=== PATIENT | male | born 2005 | race Caucasian/White ===

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

== ENCOUNTER 2024-08-29 21:07 | Emergency (ER) | payer SELFPAY ==
--- OUTSIDE RECORDS SUMMARY | 2024-08-29 21:09 | XMS REPORT | Continuity of Care Document ---
Author Name Unknown Address [address] [place] [address] [address] thconnect Address [address] [facility] [address] [place] [address] Care Team Providers Care Garden Equipment Mechanic Name Role Phone bianca Attending Clinician Unavailable Payers Payer Name Policy Type Policy Number Effective Date Expirati on Date Source [facility] P [id number] Encounters Start Date/Time End Date/Time Encounter Type Admission Type Attending Clinicians Care Facility Care Department Encounter ID Source 2022-12-06 09:47:04 Outpatient bianca [facility] [id number] [facility]
[2024-08-29] MEDS ORDERED: LIDOCAINE 1% MPF 5 ML VIAL ONE (21:38)
[2024-08-29] MEDS ORDERED: TDAP (DIPHTH,PERTUSS(ACELL),TET VAC) 0.5 ML VIAL IMVAC ONE (21:38)
--- NOTE | 2024-08-29 22:22 | ER ---
Nurse's Notes [facility] Name: Tk Blair Age: 19 yrs Sex: Male : 2005 Arrival Date: 08/29/2024 Time: 21:07 Bed 12 Private MD: Diagnosis: Laceration without foreign body of right hand Presentation: 08/29 21:25 Chief complaint: Patient states: I cut my right hand at work today on a sharp edge. tm6 Coronavirus screen: Client denies travel out of the [place] in the last 14 days. Ebola Screen: Patient negative for fever greater than or equal to 101.5 degrees Fahrenheit, and additional compatible Ebola Virus Disease symptoms Patient denies exposure to infectious person. Patient denies travel to an Ebola-affected area in the 21 days before illness onset. No symptoms or risks identified at this time. Initial Sepsis Screen:. Risk Assessment: Do you want to hurt yourself or someone else? Patient reports no desire to harm self or others. Onset of symptoms was August 29, 2024 at 19:00. 21:25 Method Of Arrival: Ambulatory tm6 21:25 Acuity: KATELYN 4 tm6 22:42 Initial Sepsis Screen: Does the patient meet any 2 criteria? No. Patient's initial lg3 sepsis screen is negative. Does the patient have a suspected source of infection? No. Patient's initial sepsis screen is negative. Triage Assessment: 21:29 General: Appears in no apparent distress. Behavior is calm, cooperative. Pain: tm6 Complains of pain in right hand Pain currently is 4 out of 10 on a pain scale. Quality of pain is described as burning, aching, Pain began 2 hours ago. EENT: No signs and/or symptoms were reported regarding the EENT system. Neuro: Level of Consciousness is awake, alert, obeys commands, Oriented to person, place, time, situation. Cardiovascular: Patient's skin is warm and dry. Respiratory: Airway is patent Respiratory effort is even, unlabored, Respiratory pattern is regular, symmetrical. GI: No signs and/or symptoms were reported involving the gastrointestinal system. Abdomen is flat, non-distended. : No signs and/or symptoms were reported regarding the genitourinary system. Derm: Wound noted right hand Wound is small laceration to right hand. Musculoskeletal: No signs and/or symptoms reported regarding the musculoskeletal system. Injury Description: Laceration sustained to right hand is 0.5 to 2.5 cm long, was sustained 2-4 hours ago. no active bleeding noted at this time. Historical: - Allergies: 21:26 No Known Allergies; tm6 - PMHx: 19: Seizures; ADD/ADHD; tm6 - PSHx: 21:26 Appendectomy; tm6 - Immunization history:: Client reports receiving the 2nd dose of the Covid vaccine. - Infectious Disease History:: Denies. - Social history:: Smoking status: Patient denies any tobacco usage or history of. Patient uses alcohol, but reports only rare drinking. Screenin:39 [facility] ED Fall Risk Assessment (Adult) History of falling in the last 3 months, lg3 including since admission No falls in past 3 months (0 pts) Confusion or Disorientation No (0 pts) Intoxicated or Sedated No (0 pts) Impaired Gait No (0 pts) Mobility Assist Device Used No (0 pt) Altered Elimination No (0 pt) Score/Fall Risk Level 0 - 2 = Low Risk Oriented to surroundings, Maintained a safe environment, Educated pt \T\ family on fall prevention, incl call for assistance when getting out of bed, Assessed \T\ reinforced patient's understanding of fall precautions. Abuse screen: Denies threats or abuse. Denies injuries from another. Nutritional screening: No deficits noted. Tuberculosis screening: No symptoms or risk factors identified. Assessment: 22:39 General: Appears in no apparent distress. comfortable, Behavior is calm, cooperative. lg3 Pain: Denies pain. Neuro: No deficits noted. Johns Agitation-Sedation Scale (RASS): 0 - Alert and Calm Level of Consciousness is awake, alert, obeys commands, Oriented to person, place, time, situation. Cardiovascular: No deficits noted. Denies chest pain, shortness of breath, Capillary refill < 3 seconds Clubbing of nail beds is absent JVD is absent Patient's skin is warm and dry. Respiratory: No deficits noted. Airway is patent Respiratory effort is even, unlabored, Respiratory pattern is regular, symmetrical. GI: No deficits noted. No signs and/or symptoms were reported involving the gastrointestinal system. : No signs and/or symptoms were reported regarding the genitourinary system. EENT: No deficits noted. No signs and/or symptoms were reported regarding the EENT system. Derm: Skin is intact, is healthy with good turgor, Skin is dry, Skin is normal, Skin temperature is warm Wound noted dorsum of right hand. Musculoskeletal: No deficits noted. No signs and/or symptoms reported regarding the musculoskeletal system. Circulation, motion, and sensation intact. Range of motion: intact in all extremities. Vital Signs: 21:27 Pulse 76; Resp 17; Temp 97.6(TE); Pulse Ox 98% on R/A; Weight 77.11 kg; Height 5 ft. 9 tm6 in. ; Pain 3/10; 21:28 BP 137 / 96; MAP 107 mmHg; tm6 22:39 BP 129 / 91; Pulse 71; Resp 18 S; Pulse Ox 99% on R/A; lg3 21:27 Body Mass Index 25.10 (77.11 kg, 175.26 cm) tm6 21:27 Pain Scale: Adult tm6 ED Course: 21:10 Patient arrived in ED. mr 21:11 Klaudia Ray FNP-C [facility]. kb 21:11 Ridge Cee MD is Attending Physician. kb 21:26 Triage completed. tm6 21:29 Arm band placed on left wrist. tm6 22:39 Patient has correct armband on for positive identification. lg3 22:39 Assist provider with laceration repair on right hand that was between 2.6 to 7.5 cm lg3 using sutures. Set up tray. Performed by Klaudia COVARRUBIAS Dressed with band aid, Patient tolerated well. Patient did not have IV access during this emergency room visit. Administered Medications: 21:40 Drug: Boostrix Tdap IM 0.5 ml IM once; as a single dose Route: IM; Site: left deltoid; tm6 22:42 Follow up: Response: (VIS) Vaccine information sheet provided today. Questions and/or lg3 concerns addressed. VIS edition date: May 22, 2021.; No adverse reaction 22:42 Drug: Lidocaine Infiltration (1 %) 1 vials 5 ml Infiltration once; to bedside Volume: 5 lg3 ml; Route: Infiltration; 22:42 Follow up: Response: No adverse reaction lg3 Medication: 22:39 Vaccine Information Statement (VIS) provided today. Questions and/or concerns lg3 addressed. VIS edition date: May 22, 2021. Outcome: 22:21 Discharge ordered by MD. kb 22:39 Discharged to home ambulatory, lg3 22:39 Condition: stable 22:39 Discharge instructions given to patient, Instructed on discharge instructions, follow up and referral plans. wound care, Demonstrated understanding of instructions, follow-up care, wound care, 22:42 Patient left the ED. lg3 Signatures: Klaudia Ray, NOTCHER-C NOTCHER-CkKaci Doan, Reg Reg mr Cynthia Chandler, RN RN lg3 Devika Boudreaux RN RN tm6
--- NOTE | 2024-08-29 22:22 | EDPHYS ---
Physician Documentation [facility] Name: Tk Blair Age: 19 yrs Sex: Male : 2005 Arrival Date: 08/29/2024 Time: 21:07 Bed 12 Private MD: ED Physician Ridge Cee HPI: 08/29 22:19 This 19 yrs old Male presents to ER via Ambulatory with complaints of Hand Injury. kb 22:19 Patient is a 19-year-old male who presents for laceration of right hand that occurred kb at work approximately 3 hours prior to arrival. States there was a sharp area in the kitchen that he accidentally hit with his right hand. Denies any other injuries.. Historical: - Allergies: 21:26 No Known Allergies; tm6 - PMHx: 21:26 Seizures; ADD/ADHD; tm6 - PSHx: 21:26 Appendectomy; tm6 - Immunization history:: Client reports receiving the 2nd dose of the Covid vaccine. - Infectious Disease History:: Denies. - Social history:: Smoking status: Patient denies any tobacco usage or history of. Patient uses alcohol, but reports only rare drinking. ROS: 22:18 Constitutional: As per HPI kb Exam: 22:18 Constitutional: This is a well developed, well nourished patient who is awake, alert, kb and in no acute distress. Head/Face: Normocephalic, atraumatic. ENT: Moist Mucous membranes Cardiovascular: Regular rate Respiratory: Respirations even and unlabored. No increased work of breathing. Talking in full sentences MS/ Extremity: Pulses equal, no cyanosis. Neurovascular intact. Full, normal range of motion. Neuro: Awake and alert, GCS 15, oriented to person, place, time, and situation. 22:18 Skin: injury, laceration(s), the wound is approximately 1.5 cm(s), of the dorsum of right hand, that can be described as clean, no foreign body, linear, without bleeding, Vital Signs: 21:27 Pulse 76; Resp 17; Temp 97.6(TE); Pulse Ox 98% on R/A; Weight 77.11 kg; Height 5 ft. 9 tm6 in. ; Pain 3/10; 21:28 BP 137 / 96; MAP 107 mmHg; tm6 22:39 BP 129 / 91; Pulse 71; Resp 18 S; Pulse Ox 99% on R/A; lg3 21:27 Body Mass Index 25.10 (77.11 kg, 175.26 cm) tm6 21:27 Pain Scale: Adult tm6 Laceration: 22:18 Wound Repair of 1.5cm ( 0.6in ) subcutaneous laceration to dorsum of right hand. Linear kb shaped.. Distal neuro/vascular/tendon intact. Anesthesia: Local anesthetic administered with 1 mls of 1% lidocaine. Wound prep: Extensive cleansing with hibiclenz by me, Wound irrigation with saline by me. Skin closed with 3 5-0 Prolene using simple sutures and sterile technique. Patient tolerated well. MDM: 21:11 Medical Screening Exam initiated kb 22:19 Differential diagnosis: laceration, abrasion. Data reviewed: vital signs, nurses notes. kb Counseling: I had a detailed discussion with the patient and/or guardian regarding the historical points, exam findings, and any diagnostic results supporting the discharge/admit diagnosis, the need for outpatient follow up, a family practitioner, to return to the emergency department if symptoms worsen or persist or if there are any questions or concerns that arise at home. 22:20 Test considered but Not performed: X-ray: Hand x-ray considered but wound is kb superficial, patient has full range of motion of hand. 08/29 21:27 Order name: Dressing - Wound; Complete Time: 22:42 kb 08/29 21:27 Order name: Gloves, Sterile; Complete Time: 21:44 kb 08/29 21:27 Order name: Prolene, Sutures; Complete Time: 21:44 kb 08/29 21: Order name: Setup Suture Tray; Complete Time: 21:44 kb Administered Medications: 21:40 Drug: Boostrix Tdap IM 0.5 ml IM once; as a single dose Route: IM; Site: left deltoid; tm6 22:42 Follow up: Response: (VIS) Vaccine information sheet provided today. Questions and/or lg3 concerns addressed. VIS edition date: May 22, 2021.; No adverse reaction 22:42 Drug: Lidocaine Infiltration (1 %) 1 vials 5 ml Infiltration once; to bedside Volume: 5 lg3 ml; Route: Infiltration; 22:42 Follow up: Response: No adverse reaction lg3 Disposition: 08/30 20:38 Co-signature as Attending Physician, Ridge Cee MD I agree with the assessment sp4 and plan of care. I reviewed the patient's care provided by the Advanced Practice Provider and agree with the diagnosis and treatment plan. Disposition Summary: 08/29/24 22:21 Discharge Ordered Notes: Location: Home kb Condition: Stable kb Diagnosis - Laceration without foreign body of right hand kb Followup: kb - With: Emergency Department - When: As needed - Reason: Worsening of condition Followup: kb - With: Private Physician - When: 2 - 3 days - Reason: Recheck today's complaints, Continuance of care, Re-evaluation by your physician Discharge Instructions: - Discharge Summary Sheet kb - Laceration Care, Adult, [id number] kb Forms: - Medication Reconciliation Form kb - Antibiotic Education kb - Prescription Opioid Use kb - Patient Portal Instructions kb - Leadership Thank You Letter kb Signatures: Klaudia Ray FNP-C SHABANA-Cynthia Anderson, RN RN lg3 Ridge Cee MD MD sp4 Devika Boudreaux RN RN tm6
[2024-08-29 23:05] VITALS: TEMP 97.6
[2024-08-29 23:10] VITALS: BP 129/91; O2SAT 99
== END 2024-08-29 22:42 | disposition home or self-care (01) ==
LOC: ER 21:07
DX: S61.411A Laceration without foreign body of right hand, initial encounter (principal)
CPT/HCPCS: J2003